=== PATIENT | male | born 1980 | race African-American/Black ===

== ENCOUNTER 2018-09-21 18:56 | Emergency (ER) | payer SELFPAY ==
[~2018-09-21] VITALS: Ht 170.2 cm; Wt 64.0 kg
[2018-09-21] MEDS ORDERED: IBUPROFEN 800MG TABLET PO ONE (23:45)
[2018-09-22 01:50] VITALS: BP 90/49
== END 2018-09-22 01:51 | disposition home or self-care (01) ==
LOC: ER 18:56
DX: M79.601 Pain in right arm (principal); G62.9 Polyneuropathy, unspecified; F12.10 Cannabis abuse, uncomplicated
CPT/HCPCS: 29125; 72125; 99284; Z7610

== ENCOUNTER 2019-04-09 22:38 | Emergency (ER) | payer MEDICAID, OTHER ==
[~2019-04-09] VITALS: Ht 170.2 cm; Wt 62.0 kg
[2019-04-10] MEDS ORDERED: HYDROCODONE/ACETAMINOPHEN 5/325MG TABLET PO ONE (01:30)
[2019-04-10 04:56] VITALS: BP 92/59
== END 2019-04-10 06:00 | disposition home or self-care (01) ==
LOC: ER 22:38
DX: S00.211A Abrasion of right eyelid and periocular area, initial encounter (principal); F12.10 Cannabis abuse, uncomplicated; V49.9XXA Car occupant (driver) (passenger) injured in unspecified traffic accident, initial encounter; Y93.89 Activity, other specified; Y92.89 Other specified places as the place of occurrence of the external cause; Y99.8 Other external cause status
CPT/HCPCS: 70486; 99284

== ENCOUNTER 2021-01-31 21:24 | Emergency (ER) | payer MEDICAID ==
[~2021-01-31] VITALS: Ht 165.1 cm; Wt 67.0 kg
[2021-01-31 21:40] VITALS: BP 94/54
== END 2021-01-31 23:49 | disposition left against medical advice (07) ==
LOC: ER 22:49
DX: Z53.21 Procedure and treatment not carried out due to patient leaving prior to being seen by health care provider (principal)